=== PATIENT | female | born 1990 | race Caucasian/White ===

== ENCOUNTER → 2024-08-05 | Outpatient (CLI) | payer OTHER | LOC: M RAD 07:08 | PROVIDERS: ATTEND Midwife | DX: Z34.80 Encounter for supervision of other normal pregnancy, unspecified trimester (principal) ==

== ENCOUNTER → 2025-06-18 | Outpatient (REF) | payer OTHER ==
[2025-06-18 13:10] LABS: Trichomonas vaginalis (AMP) NOT DETECTED (NEGATIVE)
[2025-06-18 13:32] LABS: GC DNA AMPLIFICATION NEGATIVE (NEGATIVE)
[2025-06-20 12:52] LABS: HPV APTIMA Not Detected (Not Detected)
== END ==
LOC: M SFHCWAGY 10:53
PROVIDERS: ATTEND Nurse Practitioner Family
DX: N93.0 Postcoital and contact bleeding (principal)
CPT/HCPCS: 87070; 87077; 87624; 87661; 87810; 87850; G0123